=== PATIENT | female | born 1980 | race Hispanic/Latino ===

== ENCOUNTER 2017-04-11 01:06 | Observation (INO) | payer SELFPAY ==
[2017-04-11] MEDS ORDERED: Ondansetron HCl/PF 4 MG/2 ML Vial ONE ×2 (01:26→11:36)
[2017-04-11] MEDS ORDERED: Fentanyl 100 MCG/2 ML VIAL ONE ×5 (01:26→11:22)
[2017-04-11 01:35] LABS: #Basophils 0.1 thou/uL (0.0-0.2); #Eosinphils 0.1 thou/uL (0.0-0.7); #Lymphocytes 1.4 thou/uL (1.20-3.40); #Monocytes 1.1 thou/uL (0.11-0.59); #Neutrophils 14.4 thou/uL (1.40-6.50); %Basophils 0.4 % (0.0-1.0); %Eosinophils 0.4 % (0.0-10.0); %Monocytes 6.6 % (0.0-10.0); Mean Platelet Volume 7.6 fL (7.4-10.4); Red Blood Cell (RBC) Count 4.83 mill/uL (4.20-5.40); White Blood Cell (WBC) Count 17.1 thou/uL (4.8-10.8)
[2017-04-11] MEDS ORDERED: Ketorolac Tromethamine 30 MG/ML VIAL ONE (02:01)
[2017-04-11 02:08] LABS: ALT (SGPT) 21 U/L (8-55); AST (SGOT) 16 U/L (5-34); Alkaline Phosphatase 49 U/L (40-150); Anion Gap 13 mmol/L (10-20); BUN (Urea Nitrogen) 11 mg/dL (7.0-18.7); Bilirubin, Total 0.9 mg/dL (0.2-1.2); Calc. Creatinine Clearance 0 mL/min (70-130); Calcium 8.9 mg/dL (7.8-10.44); Carbon Dioxide 23 mmol/L (22-29); Chloride 104 mmol/L (98-107); Estimated GFR-MDRD Greater than 90; Globulin 3.1 g/dL (2.4-3.5); Lipase 6 U/L (8-78); Protein, Total 7.2 g/dL (6.0-8.3)
[2017-04-11] MEDS ORDERED: Piperacillin/Tazobactam 3.375 GM VIAL ONE (02:36)
[2017-04-11] MEDS ORDERED: Sodium Chloride 0.9% 100 ML ONE (02:37)
[2017-04-11 03:16] LABS: Bilirubin Negative (Negative); Blood, Urine Trace (Negative); Glucose, Urine (Dipstick) Negative (Negative); Ketone, Urine 40 mg/dL (Negative); Nitrite Negative (Negative); Protein, Urine (Dipstick) Negative (Neg-Trace); Urobilinogen 0.2 mg/dL (0.2-1.0)
[2017-04-11 03:17] LABS: Bacteria/HPF 2+ HPF (None Seen); Hyaline Casts/LPF NONE SEEN LPF (0-3 Hyaline); RBC/HPF 0-3 HPF (0-3)
[2017-04-11] MEDS ORDERED: Ondansetron HCl/PF 4 MG/2 ML Vial IVP PRN ×3 (04:43→12:36)
[2017-04-11] MEDS ORDERED: Fentanyl 100 MCG/2 ML VIAL SLOW IVP PRN (04:43)
[2017-04-11] MEDS ORDERED: Ketorolac Tromethamine 30 MG/ML VIAL IVP PRN ×2 (04:44→12:36)
[2017-04-11 06:49] VITALS: BMI 26.6
[2017-04-11] MEDS: D5 1/2 NS w/20 mEq KCL 1,000 ML IV SCH ×2 (08:05→12:08)
[2017-04-11] MEDS ORDERED: Piperacillin/Tazobactam 3.375 GM in Sodium Chloride 0.9% 100 ML IVPB SCH (09:00)
--- NOTE | 2017-04-11 09:35 | HP ---
DATE OF ADMISSION: 04/11/2017 HISTORY OF PRESENT ILLNESS: This is a 37-year-old woman who presented with insidious onset of periumbilical abdominal pain 2 days ago, which was described as sharp, without radiation. Pain since settled in the right lower quadrant tenderness persisted there. Pain is rated at 9/10 at maximum intensity. She admits to some chills, but no fevers. The patient also reports two bouts of nonbilious and nonbloody emesis. She denies any diarrhea. PAST MEDICAL HISTORY: Denies any medical problems. SURGICAL HISTORY: Denies any previous surgeries. 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 She is a G3, P2 with last menstrual period two weeks ago. She denies any cigarette smoking, ethanol or illicit drug abuse. CURRENT MEDICATIONS: None. ALLERGIES: Patient denies any known drug allergies. FAMILY HISTORY: Notable for kidney cancer in her late father. REVIEW OF SYSTEMS: Ten point review of systems IS essentially unremarkable except for as stated in past medical history and chief complaint. PHYSICAL EXAMINATION: GENERAL: This reveals a 37-year-old normally developed woman who is otherwise coherent and interactive and appears stated age. The patient is alert and oriented x3, appears to be in moderate acute distress secondary to abdominal pain. VITAL SIGNS: Today includes blood pressure 110/76, pulse 130, respirations 18, temperature is 98.9 degrees Fahrenheit, oxygen saturation is 97% on room air. HEENT: Reveals normocephalic and atraumatic. Pupils are equal, round, and reactive to light and accommodation. Extraocular muscles are intact bilaterally. She has no sclerae icterus present. HEART: Reveals regular rate with mild sinus tachycardia, no murmurs or gallops auscultated. LUNGS: Clear to auscultation bilaterally. Her breathing is regular and unlabored. ABDOMEN: Soft and slightly protuberant. She has diffuse abdominal tenderness to palpation with gross rebound tenderness present. Liver and spleen are otherwise nonpalpable below costal margins. EXTREMITIES: Reveals 2+ radial and pedal pulses bilaterally. She has no ankle edema present. NEUROLOGIC: Cranial nerves II-XII grossly intact bilaterally. The patient has no focal neurologic deficits present. PERTINENT LABORATORY DATA: Today includes a CBC with 17,100 white blood cells, hemoglobin 12.9, hematocrit is 40.0, platelet count is 197,000. Metabolic profile: Sodium 136, potassium is 3.7, chloride is 104, bicarbonate is 23, BUN 11, creatinine 0.70, glucose 116, total bilirubin 0.9, AST and ALT normal at 16 and 21 respectively. Serum lipase is normal at 6. Serum test is negative. I have personally reviewed the CT scan of the abdomen and pelvis which is remarkable for dilated appendix with periappendiceal fat stranding. I see no pneumoperitoneum to suggest perforation. IMPRESSION: Acute appendicitis with generalized peritonitis RECOMMENDATION: Laparoscopic appendectomy. The above findings and recommendations have been discussed with the patient. I have advised the patient of the risks and benefits of the proposed surgery. Risks include, but not limited to bleeding, infection, injury to bowel or surrounding structures. The patient indicates understanding of this information. I answered all her questions. This patient has given consent for this admission and surgical intervention. KEDAR
[2017-04-11] MEDS ORDERED: Bupivacaine/Epinephrine 0.25% 30 ML VIAL ONE (10:57)
[2017-04-11] MEDS ORDERED: Propofol 200 MG/20 ML VIAL ONE (11:36)
[2017-04-11] MEDS ORDERED: Lidocaine 2% PF 10 ML AMP (For Epidural Use) ONE (11:36)
[2017-04-11] MEDS ORDERED: Dexamethasone 20 MG/5 ML VIAL ONE (11:36)
[2017-04-11] MEDS ORDERED: Glycopyrrolate 0.2 MG/ML 5 ML SYRINGE ONE (11:36)
[2017-04-11] MEDS ORDERED: Dextrose 5% in Water 1,000 ML IV PRN (12:35)
[2017-04-11] MEDS ORDERED: Promethazine HCl 25 MG/ML VIAL IM PRN ×2 (12:35→12:36)
[2017-04-11] MEDS ORDERED: Dextrose 50% Abboject 50 ML SYRINGE SLOW IVP PRN (12:35)
[2017-04-11] MEDS ORDERED: Promethazine HCl 25 MG/ML VIAL SLOW IVP PRN (12:36)
[2017-04-11] MEDS ORDERED: traMADol HCl 50 MG TAB PO PRN ×2 (12:36)
[2017-04-11] MEDS ORDERED: Meperidine HCl/PF 25 MG/ML VIAL SLOW IVP PRN (12:36)
--- NOTE | 2017-04-11 13:06 | CT ---
PRELIMINARY REPORT/[facility]/EMERGENCY AFTER HOURS PROCEDURE: Addendum created by Panchito Gillis MD on 04/11/2017 2:27 AM Central Time ([place] \T\ [place]) THIS REPORT C ONTAINS FINDINGS THAT MAY BE CRITICAL TO PATIENT CARE. The findings were verbally communicated via t elephone conference with JONAS ALVARADO at 2:27 AM CDT on 04/11/2017. The findings were acknowled ged and understood. Initial Report created on 04/11/2017 2:20 AM Central Time ([place] \T\ [place]) EXAM: CT Abdomen and Pelvis With Intravenous Contrast EXAM DATE/TIME: Exam ordered 04/11/2017 1:45 AM CLINICAL HISTORY: 37 years old, female; Pain; Abdominal pain; Patient HX: Rlq pain started yesterday approx. 1800, pro gressively worsening since then. Vomited a few times earlier tonight. Thought she had food poisoning so took ampicillin (from [place]) that she had at home. No prior surgery. No fever, dysuria, urinary frequency, or hematuria. No known sick contacts. No flank or back pain. No diarrhea. Lmp 2 w eeks ago, normal for pt. TECHNIQUE: Axial computed tomography images of the abdomen and pelvis with intravenous contrast. Coronal reform atted images were created and reviewed. CONTRAST: 85 mL of [id number] administered intravenously. COMPARISON: No relevant prior studies available. FINDINGS: Lower thorax: The visualized portions of the lung bases are normal. ABDOMEN: Liver: There are no focal liver lesions present. The visualized liver is unremarkable. Gallbladder and bile ducts: The gallbladder is normal. There is no evidence of biliary ductal dilati on. No calcified stones. Pancreas: The pancreas is normal. No ductal dilation. Spleen: Normal. No splenomegaly. Adrenals: The adrenal glands are normal. Kidneys and ureters: The kidneys are normal. No hydronephrosis. Stomach and bowel: The duodenum is unremarkable. The colon is normal. No obstruction. No mucosal thi ckening. Appendix: There is dilatation of the appendix up to 13 mm with extensive periappendiceal inflammator y stranding and a punctate appendicolith within the appendiceal lumen consistent with acute appendic itis. PELVIS: Bladder: The bladder is normal. Reproductive: The uterus is normal. ABDOMEN and PELVIS: Intraperitoneal space: Normal. No free air. No significant fluid collection. Bones/joints: No acute fracture. No dislocation. Soft tissues: Normal. Vasculature: Normal. No abdominal aortic aneurysm. Lymph nodes: Normal. No enlarged lymph nodes. IMPRESSION: There is dilatation of the appendix up to 13 mm with extensive periappendiceal inflammatory strandin g and a punctate appendicolith within the appendiceal lumen consistent with acute appendicitis. Thank you for allowing us to participate in the care of your patient. Dictated and Authenticated by: Panchito Gillis MD 04/11/2017 2:20 AM Central Time ([place] \T\ [place]) FINAL REPORT EMERGENCY AFTER HOURS CT ABDOMEN AND PELVIS: Date: 04/11/17 FINDINGS/IMPRESSION: I agree with the findings and impression given in the preliminary report per [facility] physician. Acute a ppendicitis. POS: MARTITA
[2017-04-11] MEDS: Lactated Ringer's 1,000 ML IV SCH ×2 (13:48→23:48)
[2017-04-11] MEDS ORDERED: Morphine Sulfate 2 MG/ML SYRINGE SLOW IVP PRN (13:55)
[2017-04-11] MEDS ORDERED: Fentanyl 100 MCG/2 ML VIAL SLOW IVP SCH (14:15)
--- NOTE | 2017-04-11 15:28 | OP ---
DATE OF OPERATION: 04/11/2017 PREOPERATIVE DIAGNOSIS: Acute appendicitis. POSTOPERATIVE DIAGNOSIS: Acute suppurative appendicitis. PROCEDURES PERFORMED: Laparoscopic appendectomy. SURGEON: Noel Watts D.O. ANESTHESIA: General endotracheal. ESTIMATED BLOOD LOSS: 5 mL FLUIDS GIVEN: 1000 mL crystalloids. SPONGE AND INSTRUMENT COUNT: Certified as correct x2. COMPLICATIONS: None apparent at time of operation. INDICATIONS FOR PROCEDURE: A 37-year-old woman presented with a 2-day history of right lower quadra nt abdominal pain. Clinical and radiographic examination was consistent with acute appendicitis for which patient was brought to the operating room for appendectomy. Findings are consistent with suppurative gangrenous appendix with no evidence of abscess or perforat ion. DESCRIPTION OF PROCEDURE: Informed consent obtained from the patient who was brought to the operati ng room and placed in supine position. Following general anesthesia, Tyler catheter was inserted an d placed bedside drain. Abdomen was sterilely prepped and draped in the usual fashion. Skin below the umbilicus was infiltrated with 0.25% Marcaine with epinephrine. Small curvilinear infraumbilica l incision was made using an 11 scalpel. Umbilical stalk was grasped with Aimee's and elevated. V eress needle was inserted through the incision and placed in the peritoneal cavity through which the abdomen was insufflated with 2.5 liters of CO2 gas. Intra-abdominal pressure noted at 1 mmHg. Fol lowing abdominal insufflation, Veress needle was removed and a 5 mm trocar was introduced using a Vi siport under laparoscopy. Laparoscopy confirmed proper placement of the port, no injuries to underl naye structures. An additional laparoscopy reveals the right lower quadrant completely encased by o mental adhesions. Under laparoscopy, a 5 mm suprapubic and a 12 mm left lower quadrant ports were p laced after the overlying skin was infiltrated with 0.25% Marcaine with epinephrine and appropriate incisions made. The patient was placed in a Trendelenburg position, rotated to her left. I introduced the Prestige grasper through the left lower quadrant port site using this to bluntly take down omental adhesions to reveal a retrocecal suppurative and gangrenous appendix. I then introduced the George forceps t hrough the suprapubic port site grasping the appendix which was elevated. I used a [place] dissect or to create a rent through the mesoappendix at the base. Endo-BERNARDINO with a blue load was then used to divide the appendix at the appendicocecal junction. Usin g a white load of the Endo-BERNARDINO, the mesoappendix was divided at the base with good hemostasis. The gangrenous appendix was delivered out of the abdominal cavity using an EndoCatch. An operative site was inspected for good hemostasis. Finding no other pathology, laparoscopy was terminated. Fascia of the left lower quadrant port site was closed using 0 Vicryl suture and Endo closure device under laparoscopy. Abdomen was desufflated. All ports and instruments removed and accounted for. The s kin incisions were closed using 4-0 Monocryl suture in subcuticular fashion. Dermabond was applied over the incisions. The patient tolerated the operation without any apparent complications and was returned to the [facility] room in satisfactory condition.
[2017-04-11] MEDS: Acetaminophen 500 MG TAB PO SCH ×2 (17:50→23:47)
[2017-04-11] MEDS: Ketorolac Tromethamine 30 MG/ML VIAL IVP SCH ×2 (17:51→23:47)
[2017-04-11] MEDS: Piperacillin/Tazobactam 3.375 GM in Sodium Chloride 0.9% 100 ML IVPB SCH ×2 (17:52→23:53)
[2017-04-11] MEDS: Famotidine 20 MG TAB PO SCH (20:43)
[2017-04-11] MEDS: Famotidine/PF 20 mg/2ml Vial SLOW IVP SCH (20:44)
[2017-04-11] MEDS ORDERED: FLU VACC QS2017-18 36 mo. & older 0.5 ML SYRINGE IM ONE (21:00)
[2017-04-11] MEDS ORDERED: Enoxaparin Sodium 40 MG/0.4 ML SYRINGE SC SCH (21:00)
[2017-04-12] MEDS: Acetaminophen 500 MG TAB PO SCH ×2 (05:32→12:07)
[2017-04-12] MEDS: Piperacillin/Tazobactam 3.375 GM in Sodium Chloride 0.9% 100 ML IVPB SCH ×2 (05:33→12:13)
[2017-04-12] MEDS: Ketorolac Tromethamine 30 MG/ML VIAL IVP SCH ×2 (05:33→12:11)
[2017-04-12] MEDS: Famotidine 20 MG TAB PO SCH (08:07)
[2017-04-12] MEDS: Lactated Ringer's 1,000 ML IV SCH (08:07)
[2017-04-12] MEDS: Famotidine/PF 20 mg/2ml Vial SLOW IVP SCH (08:33)
[2017-04-12 15:46] VITALS: BP 97/64; TEMP 97.8
== END 2017-04-12 17:50 | disposition home or self-care (01) ==
LOC: SCSER 01:06 → SURG A 02:30
PROVIDERS: ADMIT Surgery; ATTEND Surgery
PROC: 0DTJ4ZZ Resection of Appendix, Percutaneous Endoscopic Approach (ICD-10-PCS; principal; 2017-04-12)
DX: K35.89 Other acute appendicitis (principal); Z88.5 Allergy status to narcotic agent
CPT/HCPCS: 74177; 80053; 81003; 81015; 83690; 84703; 85025; 88304; 96361; 96365; 96366; 96372; 96375; 96376; A4216; G0378; J1100; J1650; J1885; J2001; J2405; J2543; J2704; J3010; J7050

== ENCOUNTER 2019-07-12 10:28 | Emergency (ER) | payer SELFPAY ==
[2019-07-12 10:50] LABS: Pregnancy Test - Urine (BHCG) Negative (Negative); Pregu Control Background? CLEAR/WHITE (CLR/WHITE); Pregu Control Bar Appear? YES (CONTROL BAR); Specific Gravity 1.021 (1.002-1.036)
[2019-07-12 10:53] LABS: Bacteria/HPF 4+ HPF (None Seen); Bilirubin Negative (Negative); Blood, Urine 3+ (Negative); Clarity Extra Turbid (Clear); Glucose, Urine (Dipstick) Normal (Negative); Leukocyte 500 Leu/uL (Negative); Nitrite 2+ (Negative); Protein, Urine (Dipstick) 300 mg/dL (Neg-Trace); RBC/HPF Greater than 50 HPF (0-3); Urobilinogen Normal mg/dL (Less than 2); WBC/HPF Greater than 50 HPF (0-3)
[2019-07-12 12:27] LABS: #Eosinphils 0.1 thou/uL (0.0-0.7); #Lymphocytes 1.2 thou/uL (1.20-3.40); #Monocytes 0.6 thou/uL (0.11-0.59); #Neutrophils 9.9 thou/uL (1.40-6.50); %Basophils 0.3 % (0.0-1.0); %Eosinophils 0.5 % (0.0-10.0); %Lymphocytes 10.4 % (21.0-51.0); %Monocytes 4.9 % (0.0-10.0); %Neutrophils 83.8 % (42.0-75.0); Hemoglobin 12.4 g/dL (12.0-16.0); Mean Corpuscular HGB CONC 32.8 g/dL (32.0-36.0); Mean Corpuscular Hemoglobin 27.3 pg (27.0-31.0); Mean Corpuscular Volume 83.2 fL (78.0-98.0); Mean Platelet Volume 7.9 fL (7.4-10.4); Platelet Count 284 thou/uL (130-400); RBC Distribution Width 12.9 % (11.5-14.5); Red Blood Cell (RBC) Count 4.53 mill/uL (4.20-5.40); White Blood Cell (WBC) Count 11.8 thou/uL (4.8-10.8)
[2019-07-12 12:56] LABS: ALT (SGPT) 9 U/L (8-55); AST (SGOT) 13 U/L (5-34); Albumin 4.2 g/dL (3.5-5.0); Alkaline Phosphatase 56 U/L (40-110); Anion Gap 10 mmol/L (10-20); BUN (Urea Nitrogen) 12 mg/dL (7.0-18.7); Bilirubin, Total 0.5 mg/dL (0.2-1.2); Calc. Creatinine Clearance 0 mL/min (70-130); Calcium 9.1 mg/dL (7.8-10.44); Carbon Dioxide 26 mmol/L (22-29); Chloride 104 mmol/L (98-107); Estimated GFR-MDRD 88; Globulin 2.7 g/dL (2.4-3.5); Glucose 115 mg/dL (70-105); Potassium 3.9 mmol/L (3.5-5.1); Protein, Total 6.9 g/dL (6.0-8.3); Sodium 136 mmol/L (136-145)
[2019-07-12] MEDS ORDERED: Ketorolac Tromethamine 60 MG/2 ML VIAL ONE (12:58)
[2019-07-12] MEDS ORDERED: cefTRIAXone\\ROCEPHIN 1 GM VIAL ONE (12:58)
[2019-07-12] MEDS ORDERED: Lidocaine 1% PF 5 ML VIAL ONE (12:58)
== END 2019-07-12 13:50 | disposition home or self-care (01) ==
LOC: ERS 10:28
DX: N10 Acute pyelonephritis (principal); J45.909 Unspecified asthma, uncomplicated; Z79.899 Other long term (current) drug therapy
CPT/HCPCS: 36415; 80053; 81003; 81015; 81025; 85025; 96372; 99284; J0696; J1885; J2001